=== PATIENT | female | born 1990 | race Caucasian/White ===

== ENCOUNTER 2022-03-25 11:47 | Emergency (ER) | payer MEDICAID ==
[~2022-03-25] VITALS: Ht 167.6 cm; Wt 65.8 kg
[2022-03-25] MEDS ORDERED: OLAN5TAB3 PO (12:09)
[2022-03-25 12:18] LABS: HEMATOCRIT 36.6 % (31.2-41.9); MEAN CORPUSCULAR HEMOGLOBIN 30.9 uug (24.7-32.8); MEAN CORPUSCULAR VOLUME 89.3 fL (75.5-95.3); PLATELET COUNT (AUTO) 255 K/uL (179-408)
[2022-03-25 12:32] LABS: CARBON DIOXIDE 28 mmol/L (21-32); CHLORIDE 106 mmol/L (98-107); CREATININE 0.8 mg/dL (0.6-1.3); GLUCOSE 94 mg/dL (74-106); POTASSIUM 3.9 mmol/L (3.5-5.1); UREA NITROGEN, BLOOD 19 mg/dL (7-18)
--- NOTE | 2022-03-25 12:45 | NUR ---
PT IN NAD LAYING IN BED; PLACED ON AUDIOLOGIST; PT EXPRESSES ANXIOUSNESS D/T CARDIAC HISTORY OF A STABLE ARRYTHMIA; VSS; HRRR; NSR WITH OCC. PVC'S
[2022-03-25 13:32] VITALS: BP 104/78
--- NOTE | 2022-03-25 13:32 | NUR ---
Patient discharged to home in stable condition. Written and verbal after care instructions given. Patient verbalizes understanding of instructions. Stressed follow up or return to ER for worsening s/s.
== END 2022-03-25 13:35 | disposition home or self-care (01) ==
LOC: ER 11:47
DX: R00.2 Palpitations (principal); Z82.49 Family history of ischemic heart disease and other diseases of the circulatory system; F41.9 Anxiety disorder, unspecified
CPT/HCPCS: 36415; 71045; 84484; 85025; 93005; A4663